=== PATIENT | female | born 1965 | race Caucasian/White ===

== ENCOUNTER 2017-06-02 00:46 | Emergency (ER) | payer SELFPAY ==
[~2017-06-02] VITALS: Ht 167.6 cm; Wt 77.0 kg
[2017-06-02 01:05] VITALS: BP 133/75; PULSE 86; RESP 16; TEMP 98; O2SAT 99
== END 2017-06-02 02:10 | disposition left against medical advice (07) ==
LOC: NED 02:00
DX: S99.919A Unspecified injury of unspecified ankle, initial encounter (principal); W20.8XXA Other cause of strike by thrown, projected or falling object, initial encounter; Z53.21 Procedure and treatment not carried out due to patient leaving prior to being seen by health care provider
CPT/HCPCS: 99281